=== PATIENT | female | born 1950 | race African-American/Black ===

== ENCOUNTER 2018-12-11 14:47 | Inpatient (IN) | payer MEDICARE, MEDICAID ==
[~2018-12-11] VITALS: Ht 167.6 cm; Wt 68.9 kg
[2018-12-11] MEDS ORDERED: ONDANSETRON HCL 4MG/2ML INJ IV STA (16:09)
[2018-12-11] MEDS ORDERED: SODIUM CHLORIDE 0.9% 1,000 ML IV ONE (16:09)
[2018-12-11] MEDS ORDERED: MORPHINE SULFATE 4 MG/ML CPJ (NOT FOR IM USE) IV STA ×2 (16:09→19:18)
[2018-12-11 18:45] LABS: BASOPHILS % 0.2 % (0.0-2.0); EOSINOPHILS % 0.4 % (0.0-5.0); HEMATOCRIT. 32.8 % (36.0-48.0); LYMPHOCYTES % 20.2 % (20.0-50.0); MEAN CORPUSCULAR VOLUME 98.4 fL (81.0-99.0); MEAN PLATELET VOLUME 6.8 fl (7.4-10.4); MONOCYTES % 9.6 % (2.0-8.0); NEUTROPHILS % 69.6 % (40.0-76.0); PLATELET 213 x1000/uL (130-400); RED BLOOD CELL COUNT 3.33 mill/uL (4.2-5.4); RED CELL DISTRIBUTION WIDTH 17.2 % (11.6-14.6)
[2018-12-11 18:49] LABS: CHLORIDE 104 mEq/L (98-107)
[2018-12-11 18:50] LABS: INR 1.1
[2018-12-11] MEDS ORDERED: IOHEXOL-300 100 ML BOTTLE ONE (20:56)
[2018-12-11] MEDS ORDERED: CLONIDINE 0.1MG TABLET PO PRN (21:45)
[2018-12-11] MEDS ORDERED: GUAIFENESIN 200MG/10ML SUGAR FREE UDC PO PRN (21:45)
[2018-12-11] MEDS ORDERED: DEXTROSE 50% WATER 50ML SYRINGE IV PRN (21:45)
[2018-12-11] MEDS ORDERED: LORAZEPAM 2MG/ML CPJ IV PRN (21:45)
[2018-12-11] MEDS ORDERED: MAGNESIUM/ALUMINUM HYDROXIDE/SIMETHICONE 30ML UDC PO PRN (21:45)
[2018-12-11] MEDS ORDERED: IPRATROPIUM/ALBUTEROL 0.5-3(2.5)MG/3ML NEB INH PRN (21:45)
[2018-12-11] MEDS ORDERED: HYDRALAZINE 20MG/ML VIAL IV PRN (21:45)
[2018-12-11] MEDS ORDERED: ACETAMINOPHEN 325MG TABLET PO PRN (21:45)
[2018-12-11] MEDS ORDERED: DOCUSATE SODIUM 100MG CAPSULE PO PRN (21:45)
[2018-12-11] MEDS ORDERED: ONDANSETRON HCL 4MG/2ML INJ IV PRN (21:45)
[2018-12-11] MEDS ORDERED: HYDROMORPHONE HCL/PF 2MG/ML CPJ IV PRN (21:45)
[2018-12-11] MEDS ORDERED: DIPHENHYDRAMINE 50MG/ML VIAL IV PRN (21:45)
[2018-12-11] MEDS ORDERED: HYDROCODONE/ACETAMINOPHEN 10/325MG TABLET PO PRN (21:45)
[2018-12-11] MEDS ORDERED: NA PHOS,M-B/NA PHOS,DI-BA ENEMA 118ML PR PRN (21:45)
[2018-12-11] MEDS ORDERED: SODIUM CHLORIDE 0.45% 1,000 ML IV SCH (23:00)
[2018-12-11] MEDS ORDERED: HYDROMORPHONE HCL/PF 2MG/ML CPJ IV NR (23:00)
[2018-12-12] VITALS (8 sets, daily range): BP systolic 136–154; BP diastolic 67–90
[2018-12-12] MEDS ORDERED: HYDRALAZINE 10 MG in SODIUM CHLORIDE 0.9% 49.5 ML IV PRN (01:15)
[2018-12-12] MEDS ORDERED: GABA-290 PO (02:56)
[2018-12-12] MEDS ORDERED: AMLO10TA80 MT (02:56)
[2018-12-12] MEDS ORDERED: SPIR25TA6 MT (02:56)
[2018-12-12] MEDS ORDERED: FURO20TA4 PO (02:56)
[2018-12-12] MEDS: INSULIN LISPRO 100 UNITS/ML SUBCUT SCH ×3 (06:24→17:50)
[2018-12-12] MEDS: BLOOD SUGAR DIAGNOSTIC STRIP TEST SCH ×3 (06:24→17:20)
[2018-12-12 07:00] LABS: CHLORIDE 103 mEq/L (98-107)
[2018-12-12 07:04] LABS: BASOPHILS % 0.2 % (0.0-2.0); EOSINOPHILS % 1.2 % (0.0-5.0); HEMATOCRIT. 32.3 % (36.0-48.0); LYMPHOCYTES % 22.1 % (20.0-50.0); MEAN CORPUSCULAR HEMOGLOBIN 33.4 pg (28.0-32.0); MONOCYTES % 10.4 % (2.0-8.0); NEUTROPHILS % 66.1 % (40.0-76.0); PLATELET 246 x1000/uL (130-400); RED CELL DISTRIBUTION WIDTH 16.9 % (11.6-14.6)
[2018-12-12] MEDS ORDERED: ENOXAPARIN 40MG/0.4ML SYR SUBCUT SCH (09:00)
[2018-12-12] MEDS: HYDROMORPHONE HCL 2MG TABLET PO PRN ×2 (09:59→16:51)
[2018-12-12] MEDS ORDERED: HYDROMORPHONE HCL 2MG TABLET PO PRN (19:30)
[2018-12-13] MEDS ORDERED: SODIUM CHLORIDE 0.9% INJ 3ML FLUSH IVF SCH (06:00)
== END 2018-12-12 21:20 | disposition left against medical advice (07) | DRG 282 ==
LOC: ER 14:47 → ENRESERV 17:22 → EDBEDREQ 17:42 → 6EST 20:25 → EDBEDREQ 20:29 → EDBEDREQTM 20:29 → EDBEDREQSVC 20:29 → ENRESERV 12-12 00:10
PROVIDERS: ADMIT Internal Medicine; ATTEND Internal Medicine
DX: K86.89 Other specified diseases of pancreas (principal); C78.7 Secondary malignant neoplasm of liver and intrahepatic bile duct; C77.3 Secondary and unspecified malignant neoplasm of axilla and upper limb lymph nodes; C55 Malignant neoplasm of uterus, part unspecified; D64.9 Anemia, unspecified; E11.9 Type 2 diabetes mellitus without complications; I10 Essential (primary) hypertension; Z53.21 Procedure and treatment not carried out due to patient leaving prior to being seen by health care provider; K44.9 Diaphragmatic hernia without obstruction or gangrene; Z90.710 Acquired absence of both cervix and uterus; Z92.21 Personal history of antineoplastic chemotherapy; Z92.3 Personal history of irradiation
CPT/HCPCS: 36415; 71045; 74177; 82962; 83605; 87015; 87045; 87427; 87449; 87493; 89055; 93005; 96374; 99285; J1170; J1650; J2270; J2405; J7030; Q9967